=== PATIENT | female | born 1950 | race Caucasian/White ===

== ENCOUNTER 2017-03-31 07:34 | Day surgery (SDC) | payer MEDICARE, OTHER ==
[2017-03-31] MEDS ORDERED: NA PHOS,M-B/NA PHOS,DI-BA (ADULT) 133 ML ENEMA PR ONE (07:43)
[2017-03-31] MEDS ORDERED: ONDANSETRON HCL INJ/PF 4 MG/2 ML SDV ONE (07:52)
[2017-03-31] MEDS ORDERED: LIDOCAINE 2% JELLY 30 ML TUBE ONE (07:52)
[2017-03-31] MEDS ORDERED: GLYCOPYRROLATE INJ 0.4 MG/2 ML VIAL ONE (07:52)
[2017-03-31] MEDS ORDERED: MIDAZOLAM 2 MG/2 ML INJ ONE (07:53)
[2017-03-31] MEDS ORDERED: NALOXONE HCL INJ/PF 0.4 MG/1 ML SDV ONE (07:53)
[2017-03-31] MEDS ORDERED: FLUMAZENIL INJ 0.5 MG/5 ML VIAL ONE (07:54)
[2017-03-31] MEDS ORDERED: EPINEPHRINE INJ 1 MG/10 ML DISP.SYRIN ONE (07:54)
[2017-03-31] MEDS ORDERED: GLUCAGON,HUMAN RECOMB 1 MG INJ ONE (07:54)
[2017-03-31] MEDS: MIDAZOLAM 2 MG/2 ML INJ ONE ×2 (08:34→08:38)
[2017-03-31] MEDS: FENTANYL CITRATE INJ/PF 100 MCG/2 ML AMPUL ONE ×2 (08:36→08:42)
[2017-03-31 11:28] LABS: ABSOLUTE LYMPHOCYTES (AUTO) 0.7 10^3/uL (0.5-4.7); ABSOLUTE MONOCYTES (AUTO) 0.4 10^3/uL (0.1-1.4); ABSOLUTE NEUT (AUTO) 2.7 10^3/uL (1.7-8.2); BASOPHILS % (AUTO) 0.3 % (0-2); EOSINOPHILS % (AUTO) 0.4 % (0-6); HEMATOCRIT 34.2 % (36.0-47.0); HGB HCT DIFFERENCE 1.8; MEAN CORPUSCULAR HEMOGLOBIN 31.6 pg (27.0-33.4); MEAN CORPUSCULAR HGB CONC 35.1 g/dL (32.0-36.0); MEAN CORPUSCULAR VOLUME 90 fl (80-97); MONOCYTES % (AUTO) 10.4 % (3-13); RED BLOOD COUNT 3.79 10^6/uL (3.72-5.28); SEGMENTED NEUTROPHILS % (AUTO) 69.9 % (42-78); WHITE BLOOD COUNT 3.8 10^3/uL (4.0-10.5)
[2017-03-31 11:57] VITALS: BP 104/67
--- NOTE | 2017-03-31 12:00 | OPERATIVE REPORT E ---
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 POSTOPERATIVE DIAGNOSIS: Sigmoid diverticulosis. PROCEDURE: Colon exam. SURGEON: TAMERA MARMOLEJO M.D. ANESTHESIA: Versed 4, fentanyl 100. TISSUE REMOVED OR ALTERED: None. PROCEDURE: Rectal exam: External hemorrhoids. Sigmoid descending colon diverticulosis. Transverse colon normal. Ascending colon normal. Cecum normal. Terminal ileum intubated. Distal terminal ileum normal. Scope withdrawn in cecum, ascending, transverse, descending, sigmoid, all the way to the rectum. CONCLUSION: 1. Polyps. 2. No malignancy. 3. Sigmoid diverticulosis. DISCHARGE PLAN: 1. Soft low residue diet. 2. Hold aspirin and nonsteroidal for 3 days. 3. Baseline CBC. 4. Consider followup colonoscopy 10 years. DICTATING PHYSICIAN: TAMERA MARMOLEJO M.D. [id number] PHY#: [id number] ID: [id number] JOB#: [id number] ACCT: [id number] cc:TAMERA MARMOLEJO M.D. >
--- NOTE | 2017-04-06 14:35 | HISTORY AND PHYSICAL E ---
History and Physical NAME: JESSIE HIGGINS : 1950 AGE: 66Y ADMITTED: 03/31/2017 ROOM: REFERRING PHYSICIAN: Dr. Briggs. CHIEF COMPLAINT: Polyps, diverticulosis. HISTORY OF PRESENT ILLNESS: The patient was seen 2009 where she did have history of polyps. She is being seen by Dr. Briggs, [facility]. Colonoscopy 2009 showing sessile polyp in the cecum. The patient does have diverticulosis, presented at this time regarding for colon exam. Colonoscopy 2013 showed benign polyps. PAST MEDICAL HISTORY: 1. In 2009 adenoma, polyp cecum. 2. She does have history of chronic lung disease. She was treated with Septra, question bronchiectasis. She received a treatment with Septra DS. PAST SURGICAL HISTORY: 1. Hysterectomy. 2. Appendectomy. REVIEWING OF SYSTEMS: CARDIAC: Hypertension. GASTROINTESTINAL: Colorectal polyps, diverticulosis. ENDOCRINE: Negative. PHYSICAL EXAMINATION: VITAL SIGNS: Blood pressure is 120/80, pulse 80, respirations 18, temperature is 98. HEAD, EYES, EARS, NOSE, THROAT: Normal. ABDOMEN: Soft. NEUROLOGIC: Negative. CONCLUSION: 1. Hypertension. 2. Colorectal polyps. PLAN: Colonoscopy. DICTATING PHYSICIAN: TAMERA MARMOLEJO M.D. [id number] PHY#: [id number] ID: [id number] JOB#: [id number] ACCT: [id number] cc:TAMERA MARMOLEJO M.D. >
== END 2017-03-31 10:00 | disposition home or self-care (01) ==
LOC: END 07:34
PROVIDERS: ATTEND Specialist
PROC: 0DJD8ZZ Inspection of Lower Intestinal Tract, Via Natural or Artificial Opening Endoscopic (ICD-10-PCS; principal; 2017-03-31 08:00)
DX: Z12.11 Encounter for screening for malignant neoplasm of colon (principal); K57.30 Diverticulosis of large intestine without perforation or abscess without bleeding; K64.4 Residual hemorrhoidal skin tags; Z79.899 Other long term (current) drug therapy; Z79.82 Long term (current) use of aspirin
CPT/HCPCS: 36415; 85025; G0121; J2250; J3010; J1610; J2405; 45378; J0171; J2310; J3490